=== PATIENT | male | born 1945 | race Caucasian/White ===

== ENCOUNTER 2018-08-08 00:34 | Emergency (ER) | payer MEDICARE, BC, OTHER ==
--- NOTE | 2018-08-08 00:52 | Emergency Department Record ---
History of Present Illness - General Chief Complaint: General Stated Complaint: KIDNEY FUNCTION CHECKED Time Seen by Provider: 08/08/18 00:35 Source: Patient Mode of Arrival: Ambulatory Limitations: No limitations - History of Present Illness Initial comments: 72 yo male presents with a concern about his creatinine. He is a transplant patient. He has had a recent bronchitis with green sputum. He has recent labs , CXR that were normal. He was treated with a ZPack then started on Doxycycline at an Urgent Care. He states his weight is up 4 pounds and he was worried his CR is changing. He has not had any swelling or edema. His cough is improving. His last fever was about a day and half ago. He is not short of breath. His CR on 08/04 was 1.07. He states his baseline is around 1.1 -: Days(s) Location: Other Radiation: Non-Radiating Quality: Other (No pain) Improves with: None, Medication Associated Symptoms: Cough (Improving), Weakness (fatigue) - Eli Coma Scale Eye Response: (4) Open spontaneously Motor Response: (6) Obeys commands Verbal Response: (5) Oriented [place] Total: 15 - Related Data Home Medications Medication Instructions Recorded Confirmed Last Taken Albuterol Sulfate [Albuterol 8.5 gm IH QID PRN 08/08/18 08/08/18 08/08/18 Sulfate Hfa] Doxycycline Hyclate 100 mg PO BID 08/08/18 08/08/18 08/08/18 Allergies Allergy/AdvReac Type Severity Reaction Status Date / Time Quinolones Allergy Intermediate Nausea Verified 08/08/18 01:07 PARESH Inhibitors Allergy SWELLING Verified 08/08/18 01:07 OF THE LIPS Calcium Channel Blocking Allergy TACHYCARDIA Verified 08/08/18 01:07 Agents-Dih Iodinated Contrast- Oral and Allergy HIVES Verified 08/08/18 01:07 IV Dye [Iodinated Contrast Media - IV Dye] Sulfa (Sulfonamide Allergy NAUSEA AND Verified 08/08/18 01:07 Antibiotics) VOMITING Review of Systems Constitutional: Reports: Fever, Malaise, Weakness. Denies: Chills Eyes: Denies: Eye discharge ENT: Reports: Congestion. Denies: Throat pain Respiratory: Reports: Cough. Denies: Dyspnea, Hemoptysis, Stridor, Wheezes Cardiovascular: Denies: Chest pain, Edema, Palpitations, Syncope Endocrine: Denies: Fatigue, Heat or cold intolerance, Polydipsia, Polyuria Gastrointestinal: Denies: Abdominal pain, Diarrhea, Nausea, Vomiting Genitourinary: Denies: Dysuria, Frequency, Hematuria Musculoskeletal: Denies: Arthralgia, Myalgia Skin: Denies: Bruising, Change in color, Rash Neurological: Denies: Confusion, Headache, Numbness, Tingling, Tremors, Vertigo Psychiatric: Denies: Anxiety Hematological/Lymphatic: Denies: Blood Clots, Easy bleeding, Easy bruising Past Medical History - SOCIAL HISTORY Smoking Status: Never smoker Drug Use: None - RESPIRATORY Hx Respiratory Disorders: No - CARDIOVASCULAR Hx Cardio Disorders: No - NEURO Hx Neuro Disorders: No - GI Hx GI Disorders: No - Hx Genitourinary Disorders: Yes Hx Dialysis: No Hx Renal Disease: Yes (IGA nephthropothy) - ENDOCRINE Hx Endocrine Disorders: No Comment:: elevated glucose d/t prednisone - MUSCULOSKELETAL Hx Musculoskeletal Disorders: Yes Hx Arthritis: Yes (Hands) - PSYCH Hx Psych Problems: No - HEMATOLOGY/ONCOLOGY Hx Hematology/Oncology Disorders: Yes Hx Cancer: Yes (Skin CA resolved now) Hx Chemotherapy: No Hx Radiation Therapy: No Family Medical History Hx Stroke: Mother Physical Exam - General General Appearance: Alert, Oriented x3, Cooperative, No acute distress Limitations: No limitations - Head Head exam: Atraumatic, Normal inspection - Eye Eye exam: Normal appearance, PERRL. negative: Conjunctival injection, Scleral icterus - ENT ENT exam: Normal exam, Mucous membranes moist Ear exam: Normal external inspection Nasal Exam: Normal inspection Mouth exam: Normal external inspection - Neck Neck exam: Normal inspection. negative: Lymphadenopathy - Respiratory Respiratory exam: Rhonchi (few mild scattered rhonchi). negative: Accessory muscle use, Prolonged expiratory, Rales, Respiratory distress, Stridor, Wheezes - Cardiovascular Cardiovascular Exam: Regular rate, Normal rhythm, Normal heart sounds Peripheral Pulses: 2+: Radial (R), Radial (L) (Left fistula intact) - Rectal Rectal exam: Deferred - exam: Deferred - Extremities Extremities exam: Normal inspection, Other (No pitting edema). negative: Pedal edema, Tenderness - Back Back exam: Denies: CVA tenderness (R), CVA tenderness (L) - Neurological Neurological exam: Alert, Normal gait, Oriented X3. negative: Altered - Psychiatric Psychiatric exam: Normal affect, Normal mood. negative: Agitated, Anxious - Skin Skin exam: Dry, Intact, Normal color, Warm Course Vital Signs 08/08/18 00:39 Temperature 97.9 F Pulse Rate [ 94 H Pulse Ox Probe] Respiratory 24 Rate Blood Pressure 203/93 [Right Arm] Pulse Ox 98 - Reevaluation(s) Reevaluation #1: the patient was seen and examined He has good breath sounds with few scattered rhonchi He has no edema of the peripheries Clinically he appears well BMP ordered 08/08/18 00:51 08/08/18 00:54 The patient had negative chest XR readings on 07/31/18 and on 08/07/18 at 12:49pm (about 12 hours ago) at [facility]. He is improving and not hypoxic so no indication for repeat CXR now. CR on 08/04/18 was 1.07 08/08/18 00:58 08/08/18 01:58 BMP was reviewed The Sodium was reported at 119. This was confirmed with repeat analysis. The AG is 19 with HCO3 of 17. 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 08/08/18 02:43 EKG #1: 02:39 Rate: 92 Rhythm: sinus [place]: normal Intervals: normal, no acute abnormalities ST segments: Medical Decision Making - Lab Data Result diagrams: 08/08/18 00:50 Disposition Disposition: Transfer Clinical Impression: Hyponatremia Disposition: Still a Patient at [facility] Transfer To: [facility] [place] [facility] Reason For Transfer: Hyponatremia, Renal Transplant Accepting Physician: Dami Time Discussed w/Accepting Physician: 02:32 Condition: (1) Good Forms: Patient Portal Access Time of Disposition: 02:20 Quality - Quality Measures Quality Measures: N/A - Blood Pressure Screening Does Patient Have Any of the Following: Active Dx of HTN Blood Pressure Classification: Hypertensive Reading Systolic Measurement: 203 Diastolic Measurement: 93 Screening for High Blood Pressure: Patient Exclusion, Hx of HTN [G9744]
[2018-08-08 01:14] LABS: BLOOD UREA NITROGEN 22 mg/dL (8-23); CREATININE 0.9 mg/dL (0.7-1.2); EST GLOMERULAR FILTRATION RATE > 60 mL/min
[2018-08-08 01:17] LABS: GLUCOSE,RANDOM 196 mg/dL (74-109)
[2018-08-08] MEDS: 0.9 % SODIUM CHLORIDE 1000ML 1,000 ML IV PRN (02:42)
== END 2018-08-08 03:31 | disposition still patient (30) ==
LOC: ER 00:34
DX: E87.1 Hypo-osmolality and hyponatremia (principal); R53.1 Weakness; R05 Cough; I10 Essential (primary) hypertension; Z94.0 Kidney transplant status
CPT/HCPCS: 80048; 93005; 93010; 99285